=== PATIENT | female | born 1940 | race Asian ===

== ENCOUNTER 2019-05-08 16:54 | Observation (INO) | payer MEDICARE, OTHER ==
[~2019-05-08] VITALS: Ht 160 cm; Wt 59.6 kg
--- NOTE | 2019-05-08 17:35 | NUR ---
curriculum assistant principal: Pt to ED 04 from lobby in [facility] at this time
--- NOTE | 2019-05-08 17:57 | NUR ---
PT STATES SHE FELL OF A STOOL AT THE SLOT MACHINE AT [facility] [facility]. PT STATES HER BOTTOM, BACK , AND HEAD HURTS. PT STATES HER HEAD IS SPINNING. PT IS REFUSING TO TAKE OFF HER CLOTHES TO CHANGE INTO GOWN. PT DENIES LOC, N/V. WAITING FOR FURTHER ORDERS. NO NEEDS AT THIS TIME.
--- NOTE | 2019-05-08 18:30 | NUR ---
[facility]ba to [facility]. pt changed into gown by md request. pt was refusing ct, rn eduacated about need for imaging.
--- NOTE | 2019-05-08 19:08 | NUR ---
PT BACK FROM CT.
--- NOTE | 2019-05-08 19:59 | NUR ---
MD AT BEDSIDE DISCUSSING POC FOR ADMIT. PT AGREES.
--- NOTE | 2019-05-08 20:50 | NUR ---
[facility] AT BEDSIDE DISCUSSING POC FOR ADMIT. IV ESTABLISHED
--- NOTE | 2019-05-08 20:55 | NUR ---
PT REFUSING TO BE IN GOWN. CLOTHES ARE ON. PT GIVEN SANDWHICH AND WATER REPORT TO PARTH Sutton
[2019-05-08] MEDS ORDERED: hydrALAzine 20 MG/ML, 1ML IVPush PRN (21:00)
[2019-05-08] MEDS ORDERED: LABETALOL 5MG/ML, 20ML IVPush PRN (21:00)
[2019-05-08] MEDS ORDERED: CYCLOBENZAPRINE 10 MG TABLET PO PRN (21:00)
[2019-05-08] MEDS ORDERED: OXYcodone/APAP 5/325MG TABLET PO PRN (21:00)
[2019-05-08] MEDS ORDERED: ACETAMINOPHEN 325 MG TABLET PO PRN (21:00)
[2019-05-08] MEDS ORDERED: HEPARIN 5,000 UNITS/ML, 1ML SQ SCH (21:00)
[2019-05-08] MEDS ORDERED: GABAPENTIN 300 MG CAPSULE PO PRN (21:00)
[2019-05-08] MEDS ORDERED: morphine SULFATE 10 MG/ML, 1ML IVPush PRN (21:00)
[2019-05-08 21:39] LABS: BASOPHILS # (AUTO) 0.03 x10^3/uL (0-0.1); BASOPHILS % (AUTO) 0 % (0-1); EOSINOPHILS # (AUTO) 0.17 x10^3/uL (0-0.4); EOSINOPHILS % (AUTO) 1 % (1-7); LYMPHOCYTES # (AUTO) 2.55 x10^3/uL (1-3.4); LYMPHOCYTES % (AUTO) 22 % (22-44); MD NO; MEAN CORPUSCULAR HEMOGLOBIN 30.8 pg (27.0-34.8); MEAN CORPUSCULAR HGB CONC 33.1 g/dL (32.4-35.8); MEAN CORPUSCULAR VOLUME 93.1 fL (80-100); MEAN PLATELET VOLUME 9.3 fL (7.4-10.4); MONOCYTES # (AUTO) 0.52 x10^3/uL (0.2-0.8); MONOCYTES % (AUTO) 5 % (2-9); NEUTROPHILS # (AUTO) 8.24 x10^3/uL (1.8-6.8); NEUTROPHILS % (AUTO) 72 % (42-75); PLATELET COUNT 205 x10^3/uL (130-400); RED BLOOD COUNT 4.27 x10^6/uL (3.82-5.3); RED CELL DISTRIBUTION WIDTH 13.8 % (9.6-15.2)
--- NOTE | 2019-05-08 21:39 | NUR ---
Report given to RIGOBERTO Nicole. Patient to be transferred to room 358. Patient denies pain or dizziness at this time.
--- NOTE | 2019-05-08 21:40 | NUR ---
Patient states she has HTN which she takes an unknown med for and another unknown med for "nerves."
[2019-05-08 21:45] VITALS: BP 134/61
[2019-05-08 22:28] VITALS: BP 134/63
[2019-05-08 23:14] LABS: ALANINE AMINOTRANSFERASE 29 U/L (12-78); ANION GAP 8 mmol/L (5-15); CALCIUM 8.8 mg/dL (8.5-10.1); CHLORIDE 106 mmol/L (98-107)
[2019-05-08 23:17] LABS: ALKALINE PHOSPHATASE 49 U/L (45-117); CREATININE 0.87 mg/dL (0.55-1.02)
[2019-05-09 01:00] VITALS: BP 130/60
[2019-05-09] MEDS ORDERED: LIDODERM 5% PATCH TD SCH (01:00)
[2019-05-09] MEDS ORDERED: ENOXAPARIN 40 MG/0.4 ML SQ SCH (03:00)
[2019-05-09 05:56] LABS: BASOPHILS # (AUTO) 0.03 x10^3/uL (0-0.1); BASOPHILS % (AUTO) 0 % (0-1); EOSINOPHILS # (AUTO) 0.11 x10^3/uL (0-0.4); EOSINOPHILS % (AUTO) 1 % (1-7); LYMPHOCYTES # (AUTO) 1.79 x10^3/uL (1-3.4); LYMPHOCYTES % (AUTO) 24 % (22-44); MD NO; MEAN CORPUSCULAR HEMOGLOBIN 30.7 pg (27.0-34.8); MEAN CORPUSCULAR HGB CONC 33.2 g/dL (32.4-35.8); MEAN CORPUSCULAR VOLUME 92.7 fL (80-100); MEAN PLATELET VOLUME 8.3 fL (7.4-10.4); MONOCYTES # (AUTO) 0.44 x10^3/uL (0.2-0.8); MONOCYTES % (AUTO) 6 % (2-9); NEUTROPHILS % (AUTO) 68 % (42-75); PLATELET COUNT 197 x10^3/uL (130-400); RED BLOOD COUNT 4.02 x10^6/uL (3.82-5.3); RED CELL DISTRIBUTION WIDTH 13.5 % (9.6-15.2)
[2019-05-09 06:02] LABS: ALANINE AMINOTRANSFERASE 24 U/L (12-78); ALBUMIN 3.6 g/dL (3.4-5.0); ANION GAP 6 mmol/L (5-15); CALCIUM 8.5 mg/dL (8.5-10.1); CHLORIDE 106 mmol/L (98-107); CREATININE 0.76 mg/dL (0.55-1.02)
[2019-05-09 06:04] LABS: ALKALINE PHOSPHATASE 52 U/L (45-117); TOTAL PROTEIN 7.3 g/dL (6.4-8.2)
[2019-05-09 07:22] VITALS: BP 137/74
[2019-05-09] MEDS ORDERED: SODIUM CHLORIDE 0.9% 1,000 ML IV SCH (08:00)
[2019-05-09] MEDS ORDERED: ACETAMINOPHEN 325 MG TABLET PO PRN (08:00)
[2019-05-09] MEDS ORDERED: ERGOCALCIFEROL 50,000 UNIT CAPSULE PO SCH (09:00)
[2019-05-09] MEDS ORDERED: ACET325T26 PO (09:39)
== END 2019-05-09 10:45 | disposition home or self-care (01) ==
LOC: ED 20:24 → EDIP 20:32 → INTOOBSV 20:32 → 3N 21:43 → DCLOUNGE 05-09 10:32
PROVIDERS: ADMIT Internal Medicine; ATTEND Internal Medicine
DX: S30.0XXA Contusion of lower back and pelvis, initial encounter (principal); R51 Headache; J45.909 Unspecified asthma, uncomplicated; W07.XXXA Fall from chair, initial encounter; Y93.89 Activity, other specified; Y92.89 Other specified places as the place of occurrence of the external cause; Z79.899 Other long term (current) drug therapy
CPT/HCPCS: 36415; 70450; 72220; 80053; 82306; 85025; 97165; 99284; G0378